=== PATIENT | male | born 1980 | race Caucasian/White ===

== ENCOUNTER 2016-08-31 09:04 | Emergency (ER) | payer SELFPAY ==
[~2016-08-31] VITALS: Ht 182.9 cm; Wt 85.0 kg
[2016-08-31 09:06] VITALS: BP 186/98; PULSE 94; RESP 16; TEMP 97.9; O2SAT 98
--- NOTE | 2016-08-31 09:28 | PD ---
HPI Chief Complaint: Injury Time Seen by Provider: 09:19 Travel History International Travel<30 days: No Contact w/Intl Traveler<30days: No Traveled to known affect area: No History of Present Illness HPI Patient comes in complaining of left knee pain and swelling status post trip and fall yesterday. Patient states that he tripped coming straight down on his left knee. Patient having stabbing/throbbing pain since then has got progressively worse. Patient tried resting yesterday after the incident and his dad brought him crutches today. Patient denies doing anything else for this. Denies any numbness or tingling, head injury, or loss of consciousness. Pain is worse with trying to move his knee or stand on it. 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 PFS Past Medical History Cancer: Yes (giant cell left tibia) Social History Alcohol Use: No Tobacco Use: No Substance Use: No Allergies-Medications (Allergen,Severity, Reaction): Coded Allergies: Penicillin (Verified Allergy, Severe, 08/31/16) Reported Meds & Prescriptions Reported Meds & Active Scripts Active Percocet (Oxycodone-Acetaminophen) 5-325 mg Tab 1 Tab PO Q6HR PRN Naprosyn (Naproxen) 500 Mg Tab 500 Mg PO Q12HR PRN Review of Systems Except as stated in HPI: all other systems reviewed are Neg Physical Exam Narrative GENERAL: Well-developed, well nourished, in no acute distress, and non-ill appearing. SKIN: Warm and dry. HEAD: Atraumatic. Normocephalic. EYES: Pupils equal and round. EOMI. No scleral icterus. No injection or drainage. ENT: No nasal bleeding or discharge. Mucous membranes pink and moist. NECK: Trachea midline. Supple. No nuclear rigidity. CARDIOVASCULAR: Dorsal pulses 2+ intact bilaterally. Capillary refill less than 2 seconds. RESPIRATORY: No accessory muscle use. No respiratory distress. MUSCULOSKELETAL: No obvious deformities. No clubbing. No cyanosis. Decreased range of motion left knee secondary to pain and swelling. Knee: Negative varus and valgus maneuvers, anterior draw test, and Evette test. Pulses equal BL distal to injury. Capillary refill less than 2 seconds distal to injury and equal BL. FROM distal to injury and equal BL. Strength distal to injury equal BL. NV intact distal to injury. Dorsal pulses equal BL. Patient reports tenderness to palpation anterior aspect of left knee. There is soft tissue swelling versus joint effusion noted. NEUROLOGICAL: Awake and alert. No obvious cranial nerve deficits. Motor grossly within normal limits. Normal speech. PSYCHIATRIC: Appropriate mood and affect; insight and judgment normal. Data Data Last Documented VS Vital Signs Date Time Temp Pulse Resp B/P Pulse Ox O2 Delivery O2 Flow Rate FiO2 08/31/16 09:06 97.9 94 16 186/98 98 Orders Ice/Cold Pack (08/31/16 09:17) Knee, Complete (4vws) (08/31/16 ) Oxycodone-Acetamin 5-325 Mg (Percocet (08/31/16 09:30) Naproxen (Naprosyn) (08/31/16 09:30) Knee, Ltd (1 Or 2vws) (08/31/16 ) Splint Or Brace Apply/Monitor (08/31/16 11:28) Mandatory Outpatient Referral (08/31/16 12:04) [facility] Medical Decision Making Medical Screen Exam Complete: Yes Emergency Medical Condition: Yes Differential Diagnosis Fracture, strain, contusion, pleural effusion, hemarthrosis, other Narrative Course The patient sustained a fracture. The distal extremity appears neurovascularly intact, without evidence of neurovascular injury nor compartment syndrome. Tendon exam also was intact. The patient refused splinting. I discussed with the patient the importance of splint to allow the fracture to heal properly as well as decrease the pain and swelling. Patient verbalizes understanding this states he will get a knee immobilizer elsewhere as he does not have insurance and he feels he can get cheaper. The patient was discharged on pain medication along with fracture and splint care instructions and given warnings for vascular compromise. The patient is to follow up with Orthopedics. The patient agrees with plan. Patient in no obvious distress upon re-evaluation. All pertinent Radiology result(s) discussed with patient. Patient was asked if they wanted to speak to my attending, which the patient did not wish to do at this time. Any questions/ concerns in reference to patient diagnosis/condition discussed and clarified prior to patient's discharge. Reinforced sheer importance of close follow up with orthopedics. Instructed patient to return to ED immediately, if symptoms return/worsen. Pt showed understanding of above instructions. Further instructions and recommendations were detailed in discharge paperwork. Pt ambulated without difficulty out of ED at discharge with crutches. Diagnosis Primary Impression: Patella fracture Qualified Code: S82.002A - Closed nondisplaced fracture of left patella, unspecified fracture morphology, initial encounter Referrals: Bhanu Minaya MD 2 days Patient Instructions: Crutch Instructions (ED), General Instructions, Knee Immobilizer (ED), Patellar Fracture (ED) Additional Instructions: Follow-up with orthopedics in 24-48 hours. Take all medication as prescribed. Apply ice to affected area 20 minutes per hour as needed for pain. Do not put any weight on your left leg until cleared by orthopedic. Return to the emergency department if symptoms get worse. Med/Other Pt SpecificInfo: Prescription(s) given Scripts Oxycodone-Acetaminophen (Percocet)5-325 mg Tab1 Tab PO Q6HR PRN (PAIN GREATER THAN 7) #10 TAB Ref 0 Prov:Farhad Ospina MD 08/31/16 Naproxen (Naprosyn)500 Mg Kfr002 Mg PO Q12HR PRN (PAIN SCALE 1 TO 10) #14 TAB Ref 0 Prov:Farhad Ospina MD 08/31/16 Disposition: 01 DISCHARGE HOME Condition: Stable Jude Hannon Aug 31, 2016 09:28
[2016-08-31] MEDS ORDERED: NAPROXEN 500 MG TAB PO ONE (09:30)
[2016-08-31] MEDS ORDERED: oxyCODONE/ACETAMINOPHEN 5 MG/325 MG TAB PO ONE (09:30)
--- NOTE | 2016-08-31 10:04 | RADRPT ---
EXAM DATE/TIME: 08/31/2016 09:33 [facility] COMPARISON: No previous studies available for comparison. INDICATIONS: Left knee pain after fall. MEDICAL HISTORY: Carcinoma, bone. SURGICAL HISTORY: Cement placed in knee from bone removal. ENCOUNTER: Initial ACUITY: 1 day PAIN SCORE: 10/10 LOCATION: Left anterior knee. FINDINGS: Methyl methacrylate is seen in the medial tibial plateau. This does touch the articular surface. Th ere is a moderate joint effusion evident. The lateral side of the knee is intact. Patella appears unremarkable. CONCLUSION: Evidence for a previous surgery about the medial plateau. Moderate joint effusion suggesting an acute process. After discussion with Dr. Ospina patella views are pending. Néstor España MD FACR on August 31, 2016 at 9:38 Board Certified Radiologist. This report was verified electronically.
[2016-08-31] MEDS ORDERED: PERC5TAB12 PO (11:33)
[2016-08-31] MEDS ORDERED: NAPR500 PO (11:33)
--- NOTE | 2016-08-31 11:52 | RADRPT ---
EXAM DATE/TIME: 08/31/2016 10:39 [facility] COMPARISON: KNEE LEFT COMPLETE (4VWS), August 31, 2016, 9:33. INDICATIONS: Left knee pain after fall, additional views for patella. MEDICAL HISTORY: Carcinoma, bone. SURGICAL HISTORY: Cement where bone was taken out. ENCOUNTER: Initial ACUITY: 1 day PAIN SCORE: 10/10 LOCATION: Left middle patella. FINDINGS: There is evidence of an acute comminuted fracture involving the patella. CONCLUSION: Acute comminuted fracture involving the patella. Lambert Jiang MD on August 31, 2016 at 11:46 Board Certified Radiologist. This report was verified electronically.
== END 2016-08-31 12:36 | disposition home or self-care (01) ==
LOC: NEPB 09:04
DX: S82.002A Unspecified fracture of left patella, initial encounter for closed fracture (principal); Z85.89 Personal history of malignant neoplasm of other organs and systems; W01.0XXA Fall on same level from slipping, tripping and stumbling without subsequent striking against object, initial encounter
CPT/HCPCS: 73560; 73564; 99283; L1830